=== PATIENT | male | born 2000 | race Caucasian/White ===

== ENCOUNTER 2024-01-09 18:59 | Emergency (ER) | payer BC, SELFPAY ==
[2024-01-09 19:01] VITALS: BP 142/82
--- NOTE | 2024-01-09 22:30 | ED.GENMED ---
History of Present Illness
General
Chief Complaint: Eye Problems
Time Seen by Provider: 01/09/24 22:27
History of Present Illness
History of Present Illness:
TIME OF INITIAL ENCOUNTER: 10:30 PM
HPI: Patient came in due to concerns of a small piece of metal in the eye. He was grinding aluminum a few hours ago. He thought something flew into his eye but he had no ongoing discomfort. He was able to see something in the mirror. He has no
change in his vision.
EXAM:
GENERAL: Well appearing in no distress
HEENT: Moist oral mucosa
EYE: At the left eye, there initially was a very tiny submillimeter foreign body at the 12 o'clock position of the pupil, no change in visual acuity,
NEUROLOGIC: Excellent strength all extremities, no obvious coordination deficits
PSYCHIATRIC: Appropriate mental status, normal insight and judgement
EXTREMITIES: Nontender, no edema, moves all extremities equally
SKIN: No rash, no lesions
NUMBER AND COMPLEXITY OF PROBLEMS ADDRESSED AT THE ENCOUNTER
� Chronic conditions affecting care: Anxiety/depression
� Acute Exacerbation and/or Progression of Chronic Illness: This is an acute problem
� Differential Diagnosis includes: Retained foreign body, corneal abrasion
AMOUNT AND/OR COMPLEXITY OF DATA TO BE REVIEWED AND ANALYZED
� I performed an independent evaluation of and my interpretation is:
EKG:
CT:
X-rays:
Laboratory Studies:
Other:
� Review of other/old records: The patient was here with a syncopal event 2019
� Clinical information was obtained by an independent historian: I spoke to the father at bedside
� Prescriptions/Medications Considered but not given:
� Further testing considered but not performed:
RISK OF COMPLICATIONS AND/OR MORBIDITY OR MORTALITY OF PATIENT MANAGEMENT
� Social determinants of health affecting care: Lives at home
� Discussion with other providers: I discussed case with Dr. Jain on-call for ophthalmology�he is to follow-up with him tomorrow. We also placed on empiric antibiotics.
� Escalation of care including admission/observation vs risk of discharge considered: Submillimeter foreign body noted but after irrigation no further foreign body noted. There was some questionable uptake�placed on antibiotics.
ANY OTHER UPDATES:
Phy Exam
Physical Exam
Physical Exam:
See HPI
Course
Orders/Labs/Results
Orders:
Orders
01/10/24 08:00
Ofloxacin [Ocuflox] See Dose Instructions OPHTH QID
Vital Signs
Initial and Last Documented VS:
Initial Vital Signs
Temp Pulse Resp BP Pulse Ox
98.3 F 75 18 142/82 99
01/09/24 19:01 01/09/24 19:01 01/09/24 19:01 01/09/24 19:01 01/09/24 19:01
Last Documented Vital Signs
Temp Pulse Resp BP Pulse Ox
98.3 F 75 18 142/82 99
01/09/24 19:01 01/09/24 19:01 01/09/24 19:01 01/09/24 19:01 01/09/24 19:01
Procedures
Eye Procedures
Anesthesia: other (Tetracaine)
Conjuctival foreign body removal was superficial- removed by: irrigation
Removal of corneal foreign body with: direct visualization
Foreign body removal was: other (Uncertain)
After removal was there a corneal abrasion?: other (Small amount of uptake noted)
*Critical Care Note
Total Time (30-74mins, 75-104mins- exclusive of procedures): Not Applicable
ED Attending Note
-
Portions of this chart may have been created with voice recognition software.� Occasional wrong word or��sound alike� substitutions may have occurred due to the inherent limitations of voice recognition software.
Discharge Plan
Departure
Patient Disposition: Home (Routine Discharge)
Date of Disposition: 01/09/24
Time of Disposition: 23:09
Patient with high blood pressure during this ER visit?: Yes
Discharge Problem:
Foreign body
Instructions: Foreign Body in Eye (DC)
Prescriptions:
No Action
Multivitamins
Patient Comments:
CHILDRENS MULTI VIT DAILY.
Referrals:
Coleman Jain MD [Active] - Tomorrow
Mauricio Vincent MD [Family Provider] -
Activity Restrictions/Additional Instructions:
I spoke to Dr. Jain - call [phone] after 8am for an appointment. If no one answers, he starts in [place] office at 12 noon and he can come at 11:50am.
Interventions
Interventions:
*Risk Screen - Suicide Last Done: 01/09/24 19:01
*General Assessment Last Done: 01/09/24 19:01
*Neglect/Abuse Screening Last Done: 01/09/24 19:01
*ED COVID-19 Vaccine History Last Done: 01/09/24 19:01
Discharge Date and Time
Print Language: SLOVENIAN
[2024-01-09] MEDS: OCUFLOX 1 DROP OPHTH (23:25)
== END 2024-01-09 23:33 | disposition home or self-care (01) ==
LOC: EMR 18:59
PROVIDERS: EMERGENCY PHYSICIAN Emergency Medicine; FAMILY PHYSICIAN Internal Medicine
DX: T15.02XA Foreign body in cornea, left eye, initial encounter (principal); X58.XXXA Exposure to other specified factors, initial encounter; F41.8 Other specified anxiety disorders
CPT/HCPCS: 99282; 65222